=== PATIENT | male | born 1985 | race Caucasian/White ===

== ENCOUNTER 2022-01-07 19:12 | Emergency (ER) | payer OTHER ==
--- NOTE | 2022-01-07 20:16 | XR ---
EXAMINATION TYPE: XR ankle complete LT DATE OF EXAM: 01/07/2022 COMPARISON: NONE HISTORY: Pain TECHNIQUE: 3 views of the left ankle are submitted for evaluation. FINDINGS: There is comminuted and impacted fracture of the os calcis. Chronic soft tissue swelling no hansel. No additional fracture seen at this time. Ankle mortise is intact. IMPRESSION: 1. Fracture of the left calcaneus.
[2022-01-07] MEDS ORDERED: HYDROmorphone 1 MG/ML 1 ML SYRINGE IM STA (20:18)
[2022-01-07] MEDS ORDERED: HYDROmorphone 2 MG TAB PO STA (20:28)
[2022-01-07] MEDS ORDERED: traMADol 50 MG TAB PO STA (20:45)
--- NOTE | 2022-01-07 21:14 | ED ---
Lower Extremity Injury HPI - General Chief Complaint: Extremity Injury, Lower Stated Complaint: Fall,ankle injury Time Seen by Provider: 01/07/22 20:08 Source: patient Mode of arrival: wheelchair Limitations: no limitations - History of Present Illness Initial Comments: Patient is a 36-year-old male presenting with chief complaint of left foot and ankle pain. Patient jumped down from a height of approximately 6 feet, this resulted in instant pain and swelling to the left foot and ankle. Patient has no numbness or tingling. He denies any back pain or hip pain at this time. No head injury, loss of consciousness, or use of blood thinners. No chest pain, shortness of breath, nausea, vomiting, abdominal pain, headache, vision or hearing changes, neck pain or stiffness, dizziness. - Related Data Allergies Allergy/AdvReac Type Severity Reaction Status Date / Time No Known Allergies Allergy Verified 01/07/22 19:45 Review of Systems ROS Statement: Those systems with pertinent positive or pertinent negative responses have been documented in the HPI. ROS Other: All systems not noted in ROS Statement are negative. Past Medical History Past Medical History: No Reported History History of Any Multi-Drug Resistant Organisms: None Reported Past Surgical History: No Surgical Hx Reported Smoking Status: Never smoker Past Alcohol Use History: None Reported Past Drug Use History: Marijuana General Exam Limitations: no limitations General appearance: alert, in distress Head exam: Present: atraumatic, normocephalic, normal inspection Eye exam: Present: normal appearance, EOMI. Absent: scleral icterus, periorbital swelling Neck exam: Present: normal inspection, full ROM. Absent: tenderness Respiratory exam: Present: normal lung sounds bilaterally. Absent: respiratory distress, wheezes, rales, rhonchi, stridor Cardiovascular Exam: Present: regular rate, normal rhythm, normal heart sounds. Absent: systolic murmur, diastolic murmur, rubs, gallop, clicks Left Ankle exam: Present: tenderness, swelling. Absent: normal inspection, full ROM Foot/Toe exam: Present: tenderness, swelling. Absent: normal inspection, full ROM Neurovascular tendon exam: Present: no vascular compromise. Absent: sensory deficit Neurological exam: Present: alert, oriented X3, CN II-XII intact Psychiatric exam: Present: normal affect, normal mood Skin exam: Present: warm, dry, intact, normal color. Absent: rash Course Vital Signs 01/07/22 01/07/22 19:43 23:00 Temperature 98.5 F 98.3 F Pulse Rate 74 65 Respiratory 18 20 Rate Blood Pressure 125/89 153/94 O2 Sat by Pulse 95 98 Oximetry Medical Decision Making - Medical Decision Making Patient is a 36-year-old male presenting with chief complaint of left foot and ankle pain. Patient jumped from a height of approximately 6 feet today, resulting in significant swelling and pain to the left foot and ankle. Patient denies any back pain or other pain at this time. On examination there is limited range of motion, no evidence of vascular compromise, no open wounds. No tenderness along the length of the spine or on palpation of the hips. No head injury or loss of consciousness. X-ray shows comminuted and impacted fracture of the os calcis. I spoke with orthopedic surgeon pulp[employer] contractor Dr. Pacheco who advised transfer for evaluation by trauma surgeon. I spoke with Dr. Hester from [facility] who agreed to accept the patient in the ER to ER transfer. Patient is given pain medication and educated on the plan. He is agreeable. I discussed this case with my attending Dr. Givens. Disposition Clinical Impression: Calcaneal fracture Disposition: OTHER INSTITUTION NOT DEFINED Condition: Serious Is patient prescribed a controlled substance at d/c from ED?: No Referrals: None,Stated [Primary Care Provider] - 1-2 days Time of Disposition: 21:14 - Out of Hospital Transfer - Req. Specs Out of Hospital Transfer - Requested Specifics: Other Emergency Center ([facility])
[2022-01-07] MEDS ORDERED: HYDROmorphone 1 MG/ML 1 ML SYRINGE IVP STA (21:15)
[2022-01-07] MEDS ORDERED: fentaNYL (PF) 50 MCG/ML 2 ML AMP IVP STA (22:26)
[2022-01-07 23:02] VITALS: BP 153/94; PULSE 65; RESP 20; TEMP 98.3
== END 2022-01-08 01:34 | disposition other institution (70) ==
LOC: EC 19:12
DX: S92.012A Displaced fracture of body of left calcaneus, initial encounter for closed fracture (principal); F12.90 Cannabis use, unspecified, uncomplicated; Y30.XXXA Falling, jumping or pushed from a high place, undetermined intent, initial encounter
CPT/HCPCS: 73610; 99284; 96374; 96375; J3010; J1170